=== PATIENT | female | born 1980 | race Caucasian/White ===

== ENCOUNTER 2019-01-02 21:48 | Emergency (ER) | payer OTHER ==
[~2019-01-02] VITALS: Ht 175.3 cm; Wt 79.4 kg
[~2019-01-02 21:48] MED LIST: CIPR500T4 PO; VIC PO
[2019-01-02 21:52] VITALS: BP 149/96
--- NOTE | 2019-01-02 22:20 | NUR ---
38 YO F BIB SELF PRESENTS TO ED C/O BILATERAL MIDDLE BACK PAIN X 1 DAY. PT STATES SHE WENT TO HER PCP 3 DAYS AGO AND WAS DIAGNOSED WITH UTI. SHE HAS BEEN TAKING BACTRIM X 3 DAYS WITHOUT RELIEF. SHE HAS NEW ONSET BACK PAIN/TENDERNESS TODAY WITH PAINFUL, BURNING URINATION. PT DENIES FEVER. HAS NAUSEA BUT NO VOMITING. -- PT AWAKE, ALERT. CALM, COOPERATIVE, ANSWERING QUESTIONS APPROPRIATELY. BEHAVIOR APPROPRIATE. -- SKIN PINK, WARM, DRY. BREATHING EVEN, UNLABORED. VSS. PMH-- CERVICAL CA, KIDNEY STENTS, KIDNEY FAILURE
--- NOTE | 2019-01-02 22:58 | NUR ---
DR. ESTEBAN AT BEDSIDE FOR EVALUATION.
[2019-01-02] MEDS ORDERED: KETOROLAC 60 MG/2 ML VIAL IM ONE (23:05)
[2019-01-02 23:46] VITALS: BP 134/86
--- NOTE | 2019-01-02 23:46 | NUR ---
Patient discharged with v/s stable. Written and verbal after care instructions given and explained. Patient alert, oriented and verbalized understanding of instructions. Ambulatory with steady gait. All questions addressed prior to discharge. ID band removed. Patient advised to follow up with PMD. Rx of Motrin, Cipro, and Pyridium given. Patient educated on indication of medication including possible reaction and side effects. Opportunity to ask questions provided and answered.
== END 2019-01-02 23:46 | disposition home or self-care (01) ==
LOC: MED 21:48
DX: N12 Tubulo-interstitial nephritis, not specified as acute or chronic (principal); M54.6 Pain in thoracic spine; R30.0 Dysuria; Z85.41 Personal history of malignant neoplasm of cervix uteri; Z79.899 Other long term (current) drug therapy
CPT/HCPCS: 81002; 81025; 96372; 99283; J1885

== ENCOUNTER 2019-01-31 01:29 | Emergency (ER) | payer OTHER ==
[~2019-01-31] VITALS: Ht 175.3 cm; Wt 72.1 kg
[2019-01-31 01:33] VITALS: BP 115/80
--- NOTE | 2019-01-31 01:33 | NUR ---
TO BED # 04 AMBULATORY
--- NOTE | 2019-01-31 01:38 | NUR ---
38/F PRESENTS TO ED, C/O R ANTERIOR THIGH PAIN, SINCE YESTERDAY MORNING. PT WAS SEEN IN [facility] ER, WAS GIVEN MORPHINE IM WITH RELIEF BUT PAIN CAME BACK WHEN PT WENT HOME. PT WITH PREVIOUS HX OF DVT, US WAS DONE IN [facility]. R POSTERIOR KNEE WITH NO REDNESS, SWELLING OR TENDERNESS. PT AOX4, SKIN NORMAL WARM AND DRY, RR EVEN AND UNLABORED. HX DVT; RX ELAQUIS; DID NOT TAKE RX NORCO
--- NOTE | 2019-01-31 01:38 | NUR ---
DR BRISCOE AT BEDSIDE
[2019-01-31] MEDS ORDERED: MORPHINE SULFATE 4 MG/ML SYR IVP ONE (01:45)
--- NOTE | 2019-01-31 02:01 | NUR ---
PT C/O R UPPER THIGH PAIN. ORDERED MED MORPHINE 2MG IN 1ML DILUTED WITH 2ML NS. STARTED ADMINISTERED MORPHINE IVP WITH EDUCATION. ADMINISTERED 2ML WHEN PT WANTED TO STOP DUE PT FEELING DIZZY AND ITCHY. HELD REMAINING 1ML, WASTED WITH 2 RN VERIFICATION.
--- NOTE | 2019-01-31 02:20 | NUR ---
PT REPORTS RELIEF IN PAIN, 3/10 AT THIS TIME. DENIES CP OR SOB
[2019-01-31 02:24] VITALS: BP 97/63
--- NOTE | 2019-01-31 02:24 | NUR ---
Patient discharged with v/s stable. Written and verbal after care instructions given and explained. Patient verbalized understanding. Ambulatory with steady gait. All questions addressed prior to discharge. Advised to follow up with PMD.
== END 2019-01-31 02:24 | disposition home or self-care (01) ==
LOC: MED 01:29
DX: I82.4Z1 Acute embolism and thrombosis of unspecified deep veins of right distal lower extremity (principal); Z79.899 Other long term (current) drug therapy; Z85.41 Personal history of malignant neoplasm of cervix uteri
CPT/HCPCS: 96374; 99283; J2270

== ENCOUNTER 2019-02-08 22:21 | Emergency (ER) | payer OTHER ==
[~2019-02-08] VITALS: Ht 175.3 cm; Wt 76.7 kg
[2019-02-08 22:31] VITALS: BP 131/89
--- NOTE | 2019-02-08 22:34 | NUR ---
TO LOBBY A/W BED , AMBULATORY
--- NOTE | 2019-02-08 22:52 | NUR ---
PATIENT AMBULATED TO ER BED 7.
--- NOTE | 2019-02-08 22:53 | NUR ---
PT IS A 38 Y/O FEMALE WHO PRESENTS TO THE ED C/O LOWER BACK PAIN. PER PT SYMPTOMS HAVE BEEN GOING ON X2 DAYS. PT REPORTS 7/10 ACHING LOW BACK PAIN THAT RADIATES DOWN THE LEFT LEG. NO OBVIOUS TRAUMA/DEFORMITY. CMS INTACT. PT AWAKE AND ALERT, RR EVEN/UNLABORED. PT REPOSITIONED FOR COMFORT, BED IN LOWEST POSITION. ER MD DR. ESTEBAN NOTIFIED. WILL CONTINUE TO MONITOR. Addendum: 02/08/19 at 2303 by MEDDCV PT IS A 38 Y/O FEMALE WHO PRESENTS TO THE ED C/O LOWER BACK PAIN. PER PT SYMPTOMS HAVE BEEN GOING ON X2 DAYS. PT REPORTS 7/10 ACHING LOW BACK PAIN THAT RADIATES DOWN THE LEFT LEG. NO OBVIOUS TRAUMA/DEFORMITY. PT TAKING NORCO WITH NO RELIEF. CMS INTACT. PT AWAKE AND ALERT, RR EVEN/UNLABORED. PT REPOSITIONED FOR COMFORT, BED IN LOWEST POSITION. ER MD DR. ESTEBAN NOTIFIED. WILL CONTINUE TO MONITOR.
[2019-02-08] MEDS ORDERED: KETOROLAC 60 MG/2 ML VIAL IM ONE (23:20)
--- NOTE | 2019-02-09 01:05 | NUR ---
PT LAYING IN BED, FAMILY/FRIEND AT BEDSIDE. VSS, RR EVEN AND UNLABORED. REPORTS 5/10 L THIGH CRAMPING PAIN. ALL NEEDS MET.
[2019-02-09 02:00] VITALS: BP 129/71
== END 2019-02-09 02:00 | disposition home or self-care (01) ==
LOC: MED 22:21
DX: N39.0 Urinary tract infection, site not specified (principal); M54.5 Low back pain; Z86.718 Personal history of other venous thrombosis and embolism; Z79.899 Other long term (current) drug therapy; Z85.41 Personal history of malignant neoplasm of cervix uteri
CPT/HCPCS: 81002; 81025; 96372; 99283; J1885